=== PATIENT | male | born 1945 | race Caucasian/White ===

== ENCOUNTER 2021-09-21 11:58 | Emergency (ER) | payer MEDICARE, OTHER ==
[2021-09-21] MEDS ORDERED: Sodium Chloride 0.9% 10 ML Syringe FLUSH PRN (12:41)
[2021-09-21 15:13] VITALS: BP 119/64; PULSE 70
== END 2021-09-21 15:07 | disposition home or self-care (01) ==
LOC: JD.ED 11:58
DX: R07.89 Other chest pain (principal); R06.00 Dyspnea, unspecified; I10 Essential (primary) hypertension; Z79.899 Other long term (current) drug therapy
CPT/HCPCS: 36415; 84484; 85730; 93005; 99285; J3490

== ENCOUNTER 2022-04-12 08:35 | Inpatient (IN) | payer MEDICARE, OTHER ==
[2022-04-12] MEDS ORDERED: Sodium Chloride 0.9% 1,000 ML IV ONE (10:26)
[2022-04-12] MEDS ORDERED: Sodium Chloride 0.9% 10 ML Syringe FLUSH PRN (10:35)
[2022-04-12] MEDS ORDERED: Iopamidol 755 Mg/ML 100 ML Bottle IVPUSH ONE (10:35)
[2022-04-12] MEDS ORDERED: Sodium Chloride 0.9% 45 ML IV SCH (10:45)
[2022-04-12 11:09] LABS: CORONAVIRUS COVID-19 NAA NEGATIVE (NEGATIVE)
[2022-04-12] MEDS: Heparin Sodium/D5W 25,000 UNITS/500 ML BAG IV SCH (11:45)
[2022-04-12] MEDS ORDERED: Heparin Sodium 5,000 Units/ML Vial IVPUSH ONE (11:45)
[2022-04-12] MEDS ORDERED: Morphine 2 MG/ML SYRINGE IVPUSH ONE (11:55)
[2022-04-12] MEDS ORDERED: Ondansetron 4 MG/2 ML SDV IV PRN (14:18)
[2022-04-12] MEDS: oxyCODONE 5 MG Tab PO PRN ×2 (14:50→23:52)
[2022-04-12] MEDS: Acetaminophen 325 MG Tab PO PRN (14:51)
[2022-04-12] MEDS ORDERED: FLU Vacc QS2022(65UP)/MF59C/PF 60 MCG/0.5 ML Syringe IM ONE (16:00)
[2022-04-12] MEDS: HYDROmorphone 0.5 MG/0.5 ML Syringe IVPUSH PRN ×2 (17:50→22:04)
[2022-04-13] MEDS: Heparin Sodium/D5W 25,000 UNITS/500 ML BAG IV SCH ×2 (02:54→18:12)
[2022-04-13] MEDS: HYDROmorphone 0.5 MG/0.5 ML Syringe IVPUSH PRN (04:24)
[2022-04-13] MEDS ORDERED: HYDROmorphone 0.5 MG/0.5 ML Syringe IVPUSH PRN (06:11)
[2022-04-13] MEDS ORDERED: Potassium Chloride 20 MEQ Tab.ER PO ONE (06:32)
[2022-04-13] MEDS: oxyCODONE 5 MG Tab PO PRN ×2 (08:13→15:45)
[2022-04-13] MEDS: Acetaminophen 325 MG Tab PO PRN ×2 (08:13→15:45)
[2022-04-13] MEDS ORDERED: Piperacillin/Tazobactam 4.5 GM in Sodium Chloride 0.9% 100 ML IV ONE (08:30)
[2022-04-13] MEDS: Polyethylene Glycol 3350 Powder 17 GM Packet PO SCH (09:27)
[2022-04-13] MEDS: Piperacillin/Tazobactam 4.5 GM in Sodium Chloride 0.9% 100 ML IV SCH (15:46)
[2022-04-13] MEDS: guaiFENesin/Dextromethorphan 100-10 MG/5 ML Soln 5 ML Cup PO PRN (22:40)
[2022-04-14] MEDS: Acetaminophen 325 MG Tab PO PRN ×2 (04:46→20:17)
[2022-04-14] MEDS: Polyethylene Glycol 3350 Powder 17 GM Packet PO SCH (08:29)
[2022-04-14] MEDS: Piperacillin/Tazobactam 4.5 GM in Sodium Chloride 0.9% 100 ML IV SCH ×4 (08:30→18:00)
[2022-04-14] MEDS: Heparin Sodium/D5W 25,000 UNITS/500 ML BAG IV SCH ×2 (08:40→21:32)
[2022-04-14] MEDS: guaiFENesin/Dextromethorphan 100-10 MG/5 ML Soln 5 ML Cup PO PRN ×2 (12:14→21:07)
[2022-04-14] MEDS: oxyCODONE 5 MG Tab PO PRN ×2 (12:15→16:37)
[2022-04-15] MEDS: Piperacillin/Tazobactam 4.5 GM in Sodium Chloride 0.9% 100 ML IV SCH ×4 (00:43→18:26)
[2022-04-15] MEDS: oxyCODONE 5 MG Tab PO PRN (00:43)
[2022-04-15] MEDS: guaiFENesin/Dextromethorphan 100-10 MG/5 ML Soln 5 ML Cup PO PRN ×3 (04:34→18:27)
[2022-04-15] MEDS ORDERED: Potassium Chloride 20 MEQ Tab.ER PO ONE (09:17)
[2022-04-15] MEDS ORDERED: Sodium Chloride 0.9% 100 ML ONE (09:52)
[2022-04-15] MEDS: Enoxaparin 100 MG/1 ML Syringe SUBCUT SCH ×2 (09:57→21:51)
[2022-04-15] MEDS: Polyethylene Glycol 3350 Powder 17 GM Packet PO SCH (10:04)
[2022-04-15] MEDS: Albuterol/Ipratropium 3.0-0.5 MG/3 ML Neb Soln NEB SCH ×3 (11:05→20:32)
[2022-04-15] MEDS ORDERED: diphenhydrAMINE 25 MG Cap PO PRN (15:45)
[2022-04-15] MEDS: Benzocaine/Cetylpyridinium/Menthol Lozenge MUCMEM PRN ×4 (16:18→22:40)
[2022-04-15] MEDS ORDERED: Warfarin 5 MG Tab PO SCH (18:00)
[2022-04-16] MEDS: Piperacillin/Tazobactam 4.5 GM in Sodium Chloride 0.9% 100 ML IV SCH ×2 (01:43→08:49)
[2022-04-16] MEDS: Albuterol/Ipratropium 3.0-0.5 MG/3 ML Neb Soln NEB SCH ×2 (03:17→08:37)
[2022-04-16] MEDS: guaiFENesin/Dextromethorphan 100-10 MG/5 ML Soln 5 ML Cup PO PRN (05:44)
[2022-04-16] MEDS: Enoxaparin 100 MG/1 ML Syringe SUBCUT SCH (08:49)
[2022-04-16] MEDS: Polyethylene Glycol 3350 Powder 17 GM Packet PO SCH (08:49)
[2022-04-16 13:37] VITALS: BP 87/62; PULSE 98
[2022-04-16] MEDS ORDERED: Warfarin 5 MG Tab PO SCH (18:00)
== END 2022-04-16 13:00 | disposition home or self-care (01) | DRG 176 ==
LOC: JD.ED 08:35 → JD.MS 11:58
PROVIDERS: ADMIT Internal Medicine; ATTEND Internal Medicine
DX: I26.99 Other pulmonary embolism without acute cor pulmonale (principal); D72.829 Elevated white blood cell count, unspecified; I10 Essential (primary) hypertension; Z79.899 Other long term (current) drug therapy; I51.9 Heart disease, unspecified; H54.7 Unspecified visual loss; K44.9 Diaphragmatic hernia without obstruction or gangrene; Z79.01 Long term (current) use of anticoagulants; Z20.822 Contact with and (suspected) exposure to COVID-19
CPT/HCPCS: 0241U; 36415; 71045; 71046; 71275; 80048; 80053; 83880; 84484; 85025; 85027; 85379; 85610; 85730; 93005; 93307; 94640; 94760; 94761; 96361; 96374; 97116; 97161; 97166; 99285; A9270-GY; J1170; J1644; J1650; J2270; J2543; J3490; J7030; J7620-GY; Q9967